=== PATIENT | male | born 1970 | race Caucasian/White ===

== ENCOUNTER 2019-01-04 00:08 | Emergency (ER) | payer MEDICAID ==
[~2019-01-04] VITALS: Wt 73.3 kg
[2019-01-04] MEDS ORDERED: PHEN177S43 MT (01:53)
[2019-01-04 04:09] VITALS: BP 119/71; PULSE 69; RESP 18
--- NOTE | 2019-01-05 17:30 | ERD ---
ER Documentation Chief Complaint Chief Complaint STATES HE FEELS LIKE A PIECE OF SHELL IS STUCK IN THROAT X'S 8 DAYS HPI 48-year-old male presenting to the emergency department complaints of feeling a foreign body in his throat for the past 8 days. He states he ate eggs and believes there is a small amount of the shell and the egg and now he feels it stuck in the back of his throat. He has been able to tolerate his secretions and swallow food and beverages adequately. He denies any nausea, vomiting, abdominal pain, fevers, chills, or other symptoms at this time. Symptoms are overall moderate in severity. ROS All systems reviewed and are negative except as per history of present illness. Medications Home Meds Active Scripts Phenol* (Chloraseptic* [place]) 177 Ml [place].pump, 2 SPRAY MT Q2H PRN for SORE THROAT, #1 BOTTLE Prov:GRACY ISRAEL PA-C 01/04/19 Allergies Allergies: Coded Allergies: No Known Allergy (Unverified , 01/04/19) PMhx/Soc Medical and Surgical Hx: pt denies Medical Hx, pt denies Surgical Hx Hx Alcohol Use: No Hx Substance Use: No Hx Tobacco Use: No Smoking Status: Never smoker FmHx Family History: No diabetes Physical Exam Vitals Vital Signs Date Temp Pulse Resp B/P (MAP) Pulse Ox O2 O2 Flow FiO2 Time Delivery Rate 01/04/19 98.2 69 18 119/71 99 Room Air 04:09 (87) 01/04/19 98.8 80 18 143/79 99 00:18 (100) Physical Exam Const: No acute distress Head: Atraumatic Eyes: Normal Conjunctiva ENT: Normal External Ears, Nose and Mouth. No visualized foreign body in the posterior pharynx. The uvula is midline. The airway is patent. There is no tonsillar enlargement or exudate noted. Neck: Full range of motion. No meningismus. Resp: Clear to auscultation bilaterally Cardio: Regular rate and rhythm, no murmurs Skin: No petechiae or rashes Ext: No cyanosis, or edema Neur: Awake and alert Psych: Normal Mood and Affect Procedures/MDM 48-year-old male presenting to the emergency department complaints of foreign body sensation to his throat. X-ray soft tissue neck showed no radiopaque foreign body. The full report interpreted by the radiologist may be viewed above. The patient shows no evidence of respiratory distress and he is stable and appropriate for discharge and further outpatient management. He was in agreement with the diagnosis, plan, need for follow-up, return precautions. He was advised to return to the department immediately for any new or worsening or concerning symptoms and he demonstrated good understanding. His questions and concerns were addressed prior to discharge. No evidence of life-threatening pathology at time of discharge. Pt/family in agreement with discharge plan/diagnosis. Pt/family advised to return immediately with any new or worsening symptoms. Follow-up with primary care physician within the next 1-2 days. Patient's blood pressure was elevated (>120/80) but appears stable without evidence of hypertension emergency or urgency. The patient is to follow-up and pursue outpatient monitoring and therapy with their primary care physician within 1 week and return immediately if they have any new, worsening, or concerning symptoms. Departure Diagnosis: Primary Impression: Sore throat Condition: Fair Patient Instructions: When You Have a Sore Throat [facility] Usted se hull hecho un examen mdico de control que le indica que no est en maryjo condicin que requiera tratamiento urgente en el Departamento de Emergencia. Un estudio ms profundo y el tratamiento de funk condicin pueden esperar sin ningn riesgo hasta que usted sea atendida/o en el consultorio de funk mdico o maryjo clnica. Es responsabilidad suya arreglar maryjo zoey para el seguimiento del ross. MANEJO DE CONDICIONES NO URGENTES EN EL FUTURO 1) Si usted tiene un mdico de atencin primaria: Usted debera llamar a funk mdico de atencin primaria antes de venir al departamento de emergencia. Despus de las horas de consultorio, funk doctor o funk asociado/a est disponible por telfono. El mdico o enfermero de terry en el servicio telefnico puede asesorarle por didi medio para atender el problema, o ross contrario se puede programar maryjo zoey. 2) Si usted no tiene un mdico de atencin primaria: Llame al mdico o clnica de referencia que aparece abajo tommy las horas de consultorio para hacer maryjo zoey para que le vean. CLINICAS: [place] [address] [phone] [facility] [phone] [facility] [phone] [place] [phone] [place] [address] [phone] [facility] [phone] [address] Additional Instructions: Llame al doctor MAANA y melva maryjo ZOEY PARA DENTRO DE 1-2 WRIGHT.Dgale a la secretaria que nosotros le instruimos hacer esta zoey.Avise o llame si funk condicin se empeora antes de la zoey. Regresa aqui si peor o no mejor. GRACY ISRAEL PA-C January 05, 2019 17:30
== END 2019-01-04 04:09 | disposition home or self-care (01) ==
LOC: FTE 00:08
DX: J02.9 Acute pharyngitis, unspecified (principal)
CPT/HCPCS: 70360; Z7502